=== PATIENT | male | born 1975 | race American Indian/Alaskan Native ===

== ENCOUNTER 2017-11-03 07:25 | Day surgery (SDC) | payer OTHER ==
[2017-11-03] MEDS ORDERED: DIPRIVAN 10 MG/ML IV ONE ×2 (07:26→08:15)
[2017-11-03] MEDS ORDERED: SUBLIMAZE ONE (07:26)
[2017-11-03] MEDS ORDERED: XYLOCAINE MPF 2% ONE (07:26)
[2017-11-03] MEDS ORDERED: ZEMURON IV ONE (07:26)
[2017-11-03] MEDS ORDERED: MARCAINE 0.25% INFILTRATI ONE ×2 (08:02→10:54)
[2017-11-03] MEDS ORDERED: XYLOCAINE 1% 20 mL ONE (08:02)
[2017-11-03] MEDS ORDERED: LACTATED RINGERS 1,000 ML ONE ×2 (08:26→14:31)
[2017-11-03] MEDS ORDERED: VERSED ONE (08:30)
[2017-11-03] MEDS ORDERED: DECADRON ONE (08:51)
[2017-11-03] MEDS ORDERED: ANCEF/STERILE WATER 2 GM/20 ML IV NR (09:00)
[2017-11-03] MEDS ORDERED: ePHEDrine SULFATE ONE (09:53)
[2017-11-03] MEDS ORDERED: NACL 0.9% IR ONE (10:05)
[2017-11-03] MEDS ORDERED: ZOFRAN ONE (10:20)
[2017-11-03] MEDS ORDERED: QUELICIN ONE (10:21)
[2017-11-03] MEDS ORDERED: DILAUDID ONE ×2 (10:40→12:01)
[2017-11-03] MEDS ORDERED: XYLOCAINE 1% 20 mL INFILTRATI ONE (10:54)
[2017-11-03] MEDS ORDERED: ROBINUL ONE (11:22)
[2017-11-03] MEDS ORDERED: NEOSTIGMINE ONE (11:22)
--- NOTE | 2017-11-03 11:42 | Short Stay Summary ---
Short Stay Documentation Date of service: 11/03/17 - History H&P: obtained from office - Allergies and Medications Current Medications: Allergies No Known Allergies Allergy (Verified 11/02/17 14:27) Home Medications Medication Instructions Recorded Confirmed Last Taken Type Lisinopril [Zestril TAB] 10 mg PO QDAY 11/02/17 11/03/17 11/03/17 06:00 History Metoprolol [Lopressor] 25 mg PO BID 11/02/17 11/03/17 11/03/17 06:00 History HYDROcodone/APAP 5-325 [[place] 1 each PO Q6HR PRN #30 tablet 11/03/17 Unknown Rx 5/325] Active Medications Cefazolin Sodium (Ancef/Sterile Water 2 Gm/20 Ml) 2 gm IV PREOP NR Stop: 11/03/17 12:00 - Brief post op/procedure progress note Date of procedure: 11/03/17 Pre-op diagnosis: Right chest wall mass/lipoma Post-op diagnosis: same Procedure: Right chest wall mass/lipoma excisional biopsy Anesthesia: GETA Findings: Known right chest wall mass/lipoma of 16x23 cm Surgeon: JOHN MCCONNELL Steam Roller Operator: GERBER COLIN Estimated blood loss: 50-100ml Pathology: list (right chest wall lipoma) Specimen disposition: to lab Condition: stable - Disposition Condition at discharge: Good Disposition: DC-01 TO HOME OR SELFCARE Short Stay Discharge Plan Activity: other (no heavy lifting) Diet: regular Wound: other (keep incision clean and dry; may shower on Wednesday morning; wear breast binder until seen by MD; no baths, pools or lakes; do not rub or scrub incision) Follow up with: WHITNEY LERNER MD [Primary Care Provider] - 7 Days JONH MCCONNELL MD [Staff Physician] - 7 Days Prescriptions: HYDROcodone/APAP 5-325 [[place] 5/325] 1 each PO Q6HR PRN #30 tablet PRN Reason: Pain
--- NOTE | 2017-11-03 11:58 | Operative Report ---
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 Patient wished to proceed with excisonal biopsy given pain and asymmetry. Patient wished to proceed with the above procedure. Procedure in detail: Patient was taken to the operating room. Gen. anesthesia was administered. The right chest wall was prepped and draped in the normal sterile operative fashion. Right chest wall mass/lipoma encompassing near the majority of the entire chest wall. A inframammary incision was made with a 15 blade knife. Dissection was taken down to the subcutaneous tissues. The lipoma mass was noted to be sub-pectoral. The muscle was then opened inferiorly and the capsule of the lipoma was encountered. Using a Bovie cautery and blunt dissection the lipoma was freed initially anteriorly and then freed laterally, medially, and then inferiorly. The lipoma was noted to have multiple adhesions both anteriorly and posteriorly. Once the lipoma was fully freed anteriorly, attention was then taken towards freeing of the lipoma posteriorly. The lipoma was adherent to the chest wall posteriorly and with careful dissection was dissected free with the aid of the bovie cautery. The lipoma was then removed and sent to pathology measuring 16 x 23 cm. Hemostasis was then obtained with the aid of the Bovie cautery. The chest wall cavity was irrigated and suctioned with hemostasis noted. Yo was placed and a 19 [place] FANG drain was sutured in place as well. The chest cavity was anesthetized with 1% lidocaine mixed with quarter percent Marcaine.The muscle was then reapproximated and closed using interrupted 3-0 Vicryl, the subcutaneous tissues were approximated closed using interrupted 3-0 Vicryl followed by closing of the skin using a running 4-0 Monocryl.
[2017-11-03] MEDS: DILAUDID IV PRN ×2 (12:00→12:17)
[2017-11-03] MEDS ORDERED: NORCO 5/325 PO PRN (13:20)
--- NOTE | 2017-11-03 16:06 | Post Anesthesia Evaluation ---
- Post Anesthesia Evaluation Patient Participated: Yes Airway Patent: Yes Stable Respiratory Function: Yes Nausea/Vomiting: Yes Temp > 96.8F: Yes Pain Manageable: Yes Adequeate Hydration: Yes Anesthesia Complications: No Block Receding Appropriately: Not Applicable Patient on Ventilator: No
[2017-11-03 20:57] VITALS: BP 140/80
--- NOTE | 2017-11-03 23:36 | Post Anesthesia Evaluation ---
- Post Anesthesia Evaluation Patient Participated: Yes Airway Patent: Yes Stable Respiratory Function: Yes Nausea/Vomiting: No Temp > 96.8F: Yes Pain Manageable: Yes Adequeate Hydration: Yes Anesthesia Complications: No Block Receding Appropriately: Not Applicable
[2017-11-03] MEDS ORDERED: DILAUDID IV PRN (23:44)
== END 2017-11-03 16:08 ==
LOC: OR 07:25
PROVIDERS: ATTEND Surgery
DX: D17.1 Benign lipomatous neoplasm of skin and subcutaneous tissue of trunk (principal); I10 Essential (primary) hypertension
CPT/HCPCS: 21554; 88304; J0330; J0690; J1100; J1170; J2250; J2405; J2704; J2710; J3010; J7120